=== PATIENT | female | born 2000 | race Two or more races ===

== ENCOUNTER 2020-02-16 17:54 | Outpatient (CLI) | payer OTHER ==
[2020-02-16] MEDS ORDERED: PRENATAL TABLE1 EAC1 PO (18:08)
[2020-02-16] MEDS ORDERED: FOLIC ACID PO (18:08)
== END 2020-02-16 17:55 | disposition home or self-care (01) ==
LOC: OBS/DEL 17:54
PROVIDERS: ATTEND Specialist
DX: O26.893 Other specified pregnancy related conditions, third trimester (principal); R10.2 Pelvic and perineal pain; N89.8 Other specified noninflammatory disorders of vagina; Z20.828 Contact with and (suspected) exposure to other viral communicable diseases

== ENCOUNTER 2020-02-20 01:37 | Inpatient (IN) | payer OTHER ==
[~2020-02-20] VITALS: Ht 162.6 cm; Wt 73.9 kg
[~2020-02-20 01:37] MED LIST: FOLIC ACID PO; PRENATAL TABLE1 EAC1 PO
== END 2020-02-22 13:54 | disposition home or self-care (01) | DRG 807 ==
LOC: OB/GYN 01:37 → LDR 01:37 → OB/GYN 04:46
PROVIDERS: ADMIT Specialist; ATTEND Specialist
PROC: 10E0XZZ Delivery of Products of Conception, External Approach (ICD-10-PCS; principal; 2020-02-20)
PROC: 3E033VJ Introduction of Other Hormone into Peripheral Vein, Percutaneous Approach (ICD-10-PCS; 2020-02-20)
PROC: 4A1HXFZ Monitoring of Products of Conception, Cardiac Rhythm, External Approach (ICD-10-PCS; 2020-02-20)
DX: O60.14X0 Preterm labor third trimester with preterm delivery third trimester, not applicable or unspecified (principal); Z37.0 Single live birth; Z3A.34 34 weeks gestation of pregnancy; Z20.828 Contact with and (suspected) exposure to other viral communicable diseases